=== PATIENT | female | born 1950 | race Caucasian/White ===

== ENCOUNTER 2016-05-20 12:44 | Emergency (ER) | payer MEDICARE ==
[2016-05-20 13:20] LABS: APPEARANCE CLEAR (CLEAR); BILIRUBIN NEGATIVE (NEGATIVE); COLOR YELLOW (YELLOW); GLUCOSE 50 mg/dL (NEGATIVE); KETONE NEGATIVE (NEGATIVE); LEUKOCYTE ESTERASE NEGATIVE (NEGATIVE); NITRITE NEGATIVE (NEGATIVE); PROTEIN NEGATIVE (NEGATIVE); UROBILINOGEN NORMAL (NORMAL)
[2016-05-20 13:23] LABS: BASOPHILS 0.4 % (0.0-2.0); EOSINOPHILS 1.9 % (0-7); HEMOGLOBIN 15.5 g/dL (12-16); IMMATURE GRANULOCYTES 0.3 % (0-5); LYMPHOCYTES 27.7 % (15-50); MCH 30.3 pg (26.0-34.0); MCHC 33.7 g/dL (31.0-37.0); MEAN PLATELET VOLUME 11.7 fL (7.4-10.4); MONOCYTES 9.7 % (2-11); PLATELET COUNT 253 10x3/uL (130-400); RBC 5.11 10x6/uL (4.00-5.40); RDW 12.4 % (11.5-14.5); WBC 7.8 10x3/uL (4.8-10.8)
[2016-05-20 13:40] LABS: ALBUMIN 3.5 g/dL (3.4-5.0); ALKALINE PHOSPHATASE 109 U/L (46-116); ALT (SGPT) 44 U/L (10-68); BILIRUBIN - TOTAL 0.53 mg/dL (0.2-1.3); CALC OSMOLALITY 279 mosm/kg (275-300); CALCIUM 8.7 mg/dL (8.5-10.1); CARBON DIOXIDE 24.8 mmol/L (21.0-32.0); CHLORIDE - SERUM 102 mmol/L (98-107); CREATININE - SERUM 0.8 mg/dL (0.6-1.3); GLUCOSE 181 mg/dL (74-106); POTASSIUM - SERUM 4.2 mmol/L (3.5-5.1); PROTEIN - SERUM 7.7 g/dL (6.4-8.2); SODIUM 138 mmol/L (136-145); UREA NITROGEN 11 mg/dL (7-18); eGFR NON AFRICAN AMERICAN 76 mL/min (90-120)
[2016-05-20 13:59] LABS: HCG SERUM NEGATIVE (NEGATIVE)
== END 2016-05-20 14:25 | disposition home or self-care (01) ==
LOC: D.ER 12:44
PROVIDERS: Emergency Medicine
DX: M54.9 Dorsalgia, unspecified (principal); R10.31 Right lower quadrant pain; M79.7 Fibromyalgia; I10 Essential (primary) hypertension; K21.9 Gastro-esophageal reflux disease without esophagitis; F32.9 Major depressive disorder, single episode, unspecified; F17.200 Nicotine dependence, unspecified, uncomplicated

== ENCOUNTER 2017-12-08 19:00 | Outpatient (CLI) | payer MEDICARE | END 2017-12-08 23:59 | disposition home or self-care (01) | LOC: D.MAMMO 19:00 | DX: Z12.31 Encounter for screening mammogram for malignant neoplasm of breast (principal) ==

== ENCOUNTER → 2018-01-16 16:48 | Outpatient (CLI) | payer MEDICARE, OTHER | END | disposition home or self-care (01) | LOC: D.MAMMO 09:00 | DX: R92.8 Other abnormal and inconclusive findings on diagnostic imaging of breast (principal) ==

== ENCOUNTER → 2018-02-07 12:04 | Outpatient (CLI) | payer MEDICARE, OTHER | END | disposition home or self-care (01) | LOC: D.US 12:04 | DX: R92.8 Other abnormal and inconclusive findings on diagnostic imaging of breast (principal) ==

== ENCOUNTER → 2018-02-28 17:23 | Outpatient (CLI) | payer MEDICARE, OTHER ==
[~2018-02-28 17:23] MED LIST: CITRACAL + D E1 EACH PO; CYMBALTA20 MG PO; GLUCOPHAGE1000 MG PO; KLONOPIN1 MG PO; MAXZIDE 75/501 TAB PO; MERIBIN5 MG PO; PROTONIX40 MG PO; ZANAFLEX4 MG PO
[2018-03-06 06:34] VITALS: BMI 26.8
== END | disposition home or self-care (01) ==
LOC: D.LABREF 17:23
DX: D72.829 Elevated white blood cell count, unspecified (principal)

== ENCOUNTER 2018-03-06 05:50 | Day surgery (SDC) | payer MEDICARE, OTHER ==
[2018-03-05 12:06] LABS: BASOPHILS 0.3 % (0-2); EOSINOPHILS 0.7 % (0-7); HEMATOCRIT 45.5 % (36.0-48.0); HEMOGLOBIN 15.7 g/dL (12-16); IMMATURE GRANULOCYTES 0.3 % (0-5); LYMPHOCYTES 26.4 % (15-50); MCHC 34.5 g/dL (31.0-37.0); MCV 86.8 fL (80.0-100.0); MEAN PLATELET VOLUME 11.2 fL (7.4-10.4); MONOCYTES 7.9 % (2-11); NEUTROPHILS 64.4 % (40-80); PLATELET COUNT 297 10x3/uL (130-400); RBC 5.24 10x6/uL (4.00-5.40); WBC 9.9 10x3/uL (4.8-10.8)
[2018-03-05 12:14] LABS: CALCIUM 8.9 mg/dL (8.5-10.1); CARBON DIOXIDE 29.4 mmol/L (21.0-32.0); CREATININE - SERUM 0.9 mg/dL (0.6-1.3); POTASSIUM - SERUM 3.4 mmol/L (3.5-5.1)
[2018-03-05 12:20] LABS: APTT 26.8 SECONDS (22.8-39.4); INR 0.95 (0.85-1.17); PROTIME 12.2 SECONDS (11.6-15.0)
[~2018-03-06] VITALS: Ht 162.6 cm; Wt 70.8 kg
--- NOTE | ~2018-03-06 | OP ---
PATIENT NAME: IAN ALONZO MEDICAL RECORD: [id number] :49 LOCATION:D.[facility] ADMISSION DATE: SURGEON: KEVIN PARKS MD DATE OF OPERATION: 03/06/2018 PREOPERATIVE DIAGNOSES: 1. Left breast cancer. 2. Hypertension. 3. Diabetes mellitus. 4. Fibromyalgia. POSTOPERATIVE DIAGNOSES: 1. Left breast cancer. 2. Hypertension. 3. Diabetes mellitus. 4. Fibromyalgia. PROCEDURES: 1. Needle localization, left lumpectomy. 2. [place] lymph node biopsy of the left axilla. SURGEON: Kevin Parks MD ANIMATION ARTIST: Ruth Farnsworth APRN REPORT OF OPERATION: The patient's left breast and axilla were prepped and draped in sterile fashion. A skin incision was made on the left lateral breast overlying a palpable mass. A localization wire had been placed preoperatively. Under ultrasound guidance, we were able to eviscerate this wire through our wound as it progressed through the specimen. We excised core of tissue around the breast overlying this wire and the palpable mass. Once this was completely excised, then it was marked appropriately and sent off to mammography, where the clip and the wire were noted to be in good position with the mass present in the middle of specimen. We inspected the wound bed and any bleeding that was found was treated with electrocautery. We irrigated out the wound with sterile water. The patient had a breast implant present. We never penetrated through the capsule. The subcutaneous tissues were then reapproximated with interrupted 3-0 Vicryl and the skin was closed with running subcutaneous 5-0 Monocryl. We then approached the left axilla. The patient had undergone lymphoscintigraphy preoperatively and it showed uptake in the left axilla. A transverse incision was made over an area of increased radiotracer uptake. Electrocautery was used to dissect through the subcutaneous tissues and fascia until we entered the axillary space. As we inspected the area, the patient had multiple lymph nodes with elevated readings. A total of 4 separate lymph nodes were removed with the highest reading being approximately 1100. At the conclusion of this, there was a final lymph node that had elevated reading of approximately 200, but it was at least a level 2 lymph node. As my finger was passed, it was under the pectoral muscle and may actually have been a level 3 lymph node. I elected to just leave this alone as the other lymph nodes all had much higher readings than this one. At this point, the wound bed was irrigated out with sterile water. The subcutaneous tissues were reapproximated with multiple interrupted 3-0 Vicryls and the skin was closed with running subcutaneous 5-0 Monocryl. A 10 mL of 0.25% Marcaine with epinephrine was infused into the surrounding tissues and the wounds were dressed appropriately. OPERATIVE REPORT [id number] IAN ALONZO COMPLICATIONS: None. CONDITION: Stable. ANESTHESIA: General endotracheal and local. BLOOD LOSS: 30 mL. TRANSINT:[id number] Voice Confirmation ID: [id number] DOCUMENT ID: [id number] KEVIN PARKS MD CC: RON MONSIVAIS [id number] DICTATION DATE: 03/06/18 1329 WELDER FABRICATOR: 03/06/18 1357 [facility] 03/06/18 [address] [place] [address]
[~2018-03-06 05:50] MED LIST changes: -CITRACAL + D E1 EACH PO; -MERIBIN5 MG PO
[2018-03-06] MEDS ORDERED: MERIBIN5 MG PO (06:21)
[2018-03-06] MEDS ORDERED: CITRACAL + D E1 EACH PO (06:21)
[2018-03-06 06:34] VITALS: BP 153/62; Ht 162.6 cm; Wt 70.8 kg
--- NOTE | 2018-03-06 15:11 | NUR ---
DC INSTRUCTIONS GIVEN TO PT/FAMILY. STATE UNDERSTANDING. DC'D IV CATH FULLY INTACT.
--- NOTE | 2018-03-06 15:44 | NUR ---
PT LEFT UNIT VIA WC AT 1543
== END 2018-03-06 15:43 | disposition home or self-care (01) ==
LOC: D.OPS 05:50 → D.PAN 08:00 → D.OPS 15:43
PROVIDERS: Anesthesiology; Surgery
DX: C50.912 Malignant neoplasm of unspecified site of left female breast (principal); I10 Essential (primary) hypertension; E11.9 Type 2 diabetes mellitus without complications; M79.7 Fibromyalgia; Z01.812 Encounter for preprocedural laboratory examination

== ENCOUNTER 2018-03-15 06:25 | Day surgery (SDC) | payer MEDICARE, OTHER ==
[~2018-03-15] VITALS: Ht 162.6 cm; Wt 70.3 kg
[~2018-03-15 06:25] MED LIST changes: +CITRACAL + D E1 EACH PO; +MERIBIN5 MG PO
[2018-03-15 06:46] LABS: BASOPHILS 0.3 % (0-2); EOSINOPHILS 1.9 % (0-7); HEMATOCRIT 42.7 % (36.0-48.0); HEMOGLOBIN 14.6 g/dL (12-16); IMMATURE GRANULOCYTES 0.8 % (0-5); LYMPHOCYTES 25.9 % (15-50); MCH 29.7 pg (26.0-34.0); MCHC 34.2 g/dL (31.0-37.0); MCV 86.8 fL (80.0-100.0); MEAN PLATELET VOLUME 10.7 fL (7.4-10.4); MONOCYTES 9.3 % (2-11); NEUTROPHILS 61.8 % (40-80); PLATELET COUNT 284 10x3/uL (130-400); RBC 4.92 10x6/uL (4.00-5.40); WBC 8.9 10x3/uL (4.8-10.8)
[2018-03-15 06:54] LABS: APPEARANCE HAZY (CLEAR); BILIRUBIN NEGATIVE (NEGATIVE); COLOR YELLOW (YELLOW); GLUCOSE NEGATIVE (NEGATIVE); KETONE NEGATIVE (NEGATIVE); NITRITE NEGATIVE (NEGATIVE); PROTEIN NEGATIVE (NEGATIVE); UROBILINOGEN NORMAL (NORMAL)
[2018-03-15 07:00] LABS: BACTERIA FEW /hpf (NONE SEEN); EPITHELIAL CELLS OCC /hpf (0-5); RED CELLS - URINE RARE /hpf (0-5); WHITE CELLS - URINE 0-5 /hpf (0-5)
[2018-03-15 07:13] LABS: CALC OSMOLALITY 284 mosm/kg (275-300); CALCIUM 9.1 mg/dL (8.5-10.1); CARBON DIOXIDE 30.9 mmol/L (21.0-32.0); CHLORIDE - SERUM 102 mmol/L (98-107); CREATININE - SERUM 0.8 mg/dL (0.6-1.3); GLUCOSE 153 mg/dL (74-106); POTASSIUM - SERUM 3.6 mmol/L (3.5-5.1); SODIUM 141 mmol/L (136-145); UREA NITROGEN 16 mg/dL (7-18); eGFR NON AFRICAN AMERICAN 75 mL/min (90-120)
[2018-03-15 09:51] VITALS: BP 116/74; Ht 162.6 cm; Wt 70.3 kg
--- NOTE | 2018-03-15 10:55 | NUR ---
REC'D FROM SURGERY. NO FAMILY AT BEDSIDE. RELATES NEEDS TO "PEE." EXPLAINED TO PT SHE HAS TO WAIT A MINIMUM OF 15 MINUTES AND TO TURN FROM SIDE TO SIDE TO MOVE MEDICATION AROUND. COFFEE AND ICE WATER BROUGHT TO PT.
--- NOTE | 2018-03-15 11:05 | NUR ---
AMBULATED TO BATHROOM AND VOIDED WITHOUT DIFFICULTY. FL TRAY SERVED TO PT. FAMILY HAVE NOT RETURNED.
--- NOTE | 2018-03-15 11:35 | NUR ---
TOLERATED FL TRAY. IV DC'D WITH CATHETER INTACT. FAMILY HERE. WRITTEN AND VERBAL DC INST. GIVEN TO PT. VERBALIZED UNDERSTANDING.
--- NOTE | 2018-03-15 11:50 | NUR ---
DC'D HOME WITH FAMILY VIA PRIVATE VEHICLE. TAKEN TO VEHICLE VIA WC. STABLE AT TIME OF DC.
--- NOTE | 2018-03-15 12:09 | OP ---
PATIENT NAME: IAN ALONZO MEDICAL RECORD: [id number] :49 LOCATION:[facility] ADMISSION DATE: SURGEON: JESSICA CRAMER MD DATE OF OPERATION: 03/15/2018 SURGEON: Jessica Cramer MD ANESTHESIA: TIVA by Tab Lynn CRNA DIAGNOSIS: Interstitial cystitis. PROCEDURES: Cystoscopy, examination under anesthesia, hydrodistention to 500 mL, and intravesical Rimso instillation. FINDINGS: Very inflamed bladder with single ureteral orifices bilaterally. No bladder tumors. No mesh graft erosion into the bladder or urethra. On examination under anesthesia, intact vaginal mucosa with no mesh graft extrusion. BLOOD LOSS: None. CLINICAL HISTORY: This is a 67-year-old female, A2, who was referred with symptoms of recurrent urinary tract infections. She has previously had pubovaginal sling and cystocele repair with mesh in 2006. She has ongoing issues with stress and urge urinary incontinence. She has daytime urinary frequency every one hour with urge incontinence. She also leaks with any kind of coughing, sneezing, lifting, and arising from bed or chair. She has symptoms of dyspareunia also. When I examined her in the office, she had urethral hypermobility. I did not see any leakage with coughing and straining. She had vaginal candidiasis, so the pelvic examination was rather difficult, but she did have a cystocele, [place]-Walker grade II, with mesh palpable in the cystocele. She comes today to have cystoscopy and examination under anesthesia to see if erosion of mesh is causing her symptoms. Her symptoms do sound very similar to interstitial cystitis. If I do not see any eroded mesh and there is bladder inflammation, we will proceed to treatment with intravesical Rimso. She did have a urine culture done in the office and that showed mixed contamination. SHE IS ALLERGIC TO CODEINE, MORPHINE, AND ASPIRIN. She was given Ancef on-call to the OR today. DESCRIPTION OF PROCEDURE: The patient was given IV sedation. She was then placed in the dorsal lithotomy position and prepped and draped. A 17-Vincentian cystoscope was used for visualization with a 30-degree lens. Going into the bladder, we did not find any signs of mesh erosion. The bladder was extremely inflamed. We then distended the bladder to 500 mL and held it for about one minute. Finally, the bladder was drained through the cystoscope sheath and the scope was removed. A 14-Vincentian red rubber catheter was then introduced into the bladder and 50 mL of Rimso solution was instilled into the bladder. The catheter was then removed, leaving the solution in the bladder. The scope was then turned into the vagina for vaginoscopy. The vaginal candidiasis had cleared up with treatment by Diflucan. There was absolutely no sign of any graft erosion or extrusion to disrupt the anterior vaginal wall. There were also no palpable abnormalities on the anterior vaginal wall besides the presence of the cystocele. At this point, the procedure was terminated. The patient was awakened and brought back to her preoperative holding area. She will void the Rimso solution out in 15 minutes. She will be seen in follow up in 2 weeks' OPERATIVE REPORT [id number] IAN ALONZO for a possible second treatment of Rimso. TRANSINT:[id number] Voice Confirmation ID: [id number] DOCUMENT ID: [id number] JESSICA CRAMER MD at 1209 CC: [id number] DICTATION DATE: 03/15/18 1053 CAREER RESOURCE TECHNICIAN: 03/15/18 1147 [facility] [address] [id number]
== END 2018-03-15 11:50 | disposition home or self-care (01) ==
LOC: D.OPS 06:25 → D.PAN 08:30 → D.OPS 08:30
PROVIDERS: Anesthesiology
DX: N30.10 Interstitial cystitis (chronic) without hematuria (principal); Z88.6 Allergy status to analgesic agent; Z88.5 Allergy status to narcotic agent; Z01.812 Encounter for preprocedural laboratory examination

== ENCOUNTER → 2018-03-27 17:45 | Outpatient (CLI) | payer MEDICARE, OTHER ==
[2018-03-15 09:51] VITALS: BMI 26.6
== END | disposition home or self-care (01) ==
LOC: D.LABREF 17:45
DX: D72.829 Elevated white blood cell count, unspecified (principal)

== ENCOUNTER → 2018-04-16 18:33 | Outpatient (CLI) | payer MEDICARE, OTHER ==
[2018-03-15 09:51] VITALS: BMI 26.6
[2018-04-23 17:11] LABS: AEROBE ID Final report (())
== END | disposition home or self-care (01) ==
LOC: D.LABREF 18:33
PROVIDERS: ATTEND Urology
DX: D72.829 Elevated white blood cell count, unspecified (principal)

== ENCOUNTER → 2018-05-09 18:49 | Outpatient (CLI) | payer MEDICARE, OTHER ==
[2018-03-15 09:51] VITALS: BMI 26.6
== END | disposition home or self-care (01) ==
LOC: D.LABREF 18:49
PROVIDERS: ATTEND Urology
DX: D72.829 Elevated white blood cell count, unspecified (principal); R31.9 Hematuria, unspecified

== ENCOUNTER 2018-05-22 09:00 | Day surgery (SDC) | payer MEDICARE, OTHER ==
[2018-05-21 12:19] LABS: HEMATOCRIT 43.1 % (36.0-48.0); HEMOGLOBIN 14.8 g/dL (12-16); MCH 29.7 pg (26.0-34.0); MCHC 34.3 g/dL (31.0-37.0); MCV 86.4 fL (80.0-100.0); MEAN PLATELET VOLUME 10.9 fL (7.4-10.4); RBC 4.99 10x6/uL (4.00-5.40); RDW 12.7 % (11.5-14.5); WBC 6.9 10x3/uL (4.8-10.8)
[2018-05-21 12:25] LABS: APPEARANCE CLEAR (CLEAR); COLOR STRAW (YELLOW); GLUCOSE 100 mg/dL (NEGATIVE); KETONE NEGATIVE (NEGATIVE); NITRITE NEGATIVE (NEGATIVE); PROTEIN NEGATIVE (NEGATIVE); SPECIFIC GRAVITY 1.015 (1.005-1.020); UROBILINOGEN NORMAL (NORMAL)
[2018-05-21 12:26] LABS: BILIRUBIN NEGATIVE (NEGATIVE)
[2018-05-21 12:29] LABS: CALC OSMOLALITY 283 mosm/kg (275-300); CALCIUM 8.7 mg/dL (8.5-10.1); CARBON DIOXIDE 31.4 mmol/L (21.0-32.0); CHLORIDE - SERUM 102 mmol/L (98-107); CREATININE - SERUM 0.8 mg/dL (0.6-1.3); GLUCOSE 162 mg/dL (74-106); POTASSIUM - SERUM 3.8 mmol/L (3.5-5.1); SODIUM 141 mmol/L (136-145); UREA NITROGEN 11 mg/dL (7-18); eGFR NON AFRICAN AMERICAN 75 mL/min (90-120)
[~2018-05-22] VITALS: Ht 162.6 cm; Wt 71.7 kg
[2018-05-22 09:09] VITALS: BP 113/63; Ht 162.6 cm; Wt 71.7 kg
--- NOTE | 2018-05-23 08:56 | OP ---
PATIENT NAME: IAN ALONZO MEDICAL RECORD: [id number] :49 LOCATION:D.OPS ADMISSION DATE: SURGEON: JESSICA CRAMER MD DATE OF OPERATION: 05/22/2018 SURGEON: Jessica Cramer MD ANESTHESIA: General anesthesia by Autumn Rios CRNA. DIAGNOSES: 1. Female stress urinary incontinence. 2. Recurrent urinary tract infections. 3. 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 PROCEDURES: Cystoscopy; pubovaginal sling with bovine fascia, 2 x 7 cm with retropubic suspension; cystocele repair using bovine fascia 8 x 12 cm. FINDINGS: On cystoscopy, no bladder injury. There are single ureteral orifices bilaterally and no bladder tumors were seen. Old mesh was well incorporated into the tissues and it cannot be removed. ESTIMATED BLOOD LOSS: 100 mL. SPECIMENS: None. CLINICAL HISTORY: This is a 67-year-old female, who has recurrent urinary tract infections. She had a previous pubovaginal sling and cystocele repair using mesh. These have failed and she now has ongoing stress urinary incontinence. When I examined her with cystoscopy and a pelvic examination, I did not see any vaginal mesh erosion. She wants to have the old mesh removed if possible as she is convinced that the old mesh is causing her to have these recurrent infections. I tried to explain her; however, that her urinary incontinence itself will predispose her to urinary tract infections and incomplete bladder emptying from the cystocele will also predispose to urinary tract infections. Also, if the old mesh is very well incorporated into the tissue that may be virtually impossible to remove the old mesh without causing a great deal of damage to the bladder or urethra. She would like to have a repair done with bovine fascia instead of another piece of mesh. SHE IS ALLERGIC TO ASPIRIN, CODEINE AND MORPHINE. She was given Ancef environmental sampler to the OR. DESCRIPTION OF PROCEDURE: The patient was given induction of general anesthesia. She was placed in dorsal lithotomy position in Trendelenburg position. A weighted speculum was used to hold the posterior vaginal wall down. A Mueller catheter was placed into the bladder and put to bag drainage. A #2 nylon suture was used to retract the labia majora laterally on both sides. These stay sutures were anchored to the medial thighs. The anterior vaginal wall was then visible. The entire anterior vaginal wall was infiltrated with Pitressin solution. Twenty units of Pitressin was dissolved in 100 mL of injectable normal saline. This fluid was used to perform hydrodissection of the plane between the anterior vaginal wall and the bladder. I made a transverse incision at the level of the bladder neck. Dissection was then done to free the anterior vaginal wall from the underlying urethra and bladder. Laterally, I broke through the pubocervical ligaments and in fact most of these had already been broken through. I broke through in fact old graft material. Finally, we had a clear space from the retropubic area to the obturator membranes OPERATIVE REPORT [id number] IAN ALONZO bilaterally and to the presacral space with the ischial spines and the attached sacrospinous ligaments bilaterally. We then proceeded with the retropubic pubovaginal sling. A 2 cm incision was made just above the symphysis pubis in transverse fashion in the midline. This was bluntly dissected down to the rectus fascia. Stamey needles were then passed through the lateral extent of the incision on each side. The tips of the needles were intersected by a finger in the retropubic space. The finger then guided the Stamey needle down to the vaginal dissection space. The Mueller catheter was then removed. Cystoscopy was performed and no bladder injury was noted. The bladder was filled through the cystoscope with normal saline. A 2 x 7 cm graft was hydrated and then a 2-0 Prolene suture was placed in helical fashion around each end of it. The suture ends of the suspensory sutures were placed through the eyelet holes all the Stamey needles. The Stamey needles were then withdrawn through the suprapubic incision to draw the suspensory sutures in the retropubic fashion up through the rectus fascia. I gently increased tension on the suspensory sutures until suprapubic pressure no longer elicited leakage per the urethra. At this point, the two suspensory sutures from each side were tied to each other. The suprapubic incision was irrigated out with normal saline. The incision was closed using joy. This completed the pubovaginal sling. I then worked on the cystocele repair. The distance from ischial spine to ischial spine was measured and it came out to 12 cm. The extent from the bladder neck to the most proximal portion of our dissection of the vaginal cuff level was 6 cm. Using the 8 x 12 rectangular sheet, an arch was cut out of the posterior edge to make the mid portion 6 cm in width. This arch also serves to prevent occlusion of the rectum, which would create difficulty with defecation in the future. Four suspensory sutures were placed. These are 2-0 Prolene and these were placed using a Capio suture owner operator tanker truck driver. A 1 cm medial to the ischial spine, the Capio suture was placed through each sacrospinous ligament. Moving 1 cm medially avoids injuring the internal pudendal artery and nerves. Once the suture had been passed through, the suture ends were placed in a hemostat and set aside. The anterior suspensory sutures were placed through the level of the arcus tendineus fascia or the Ian's ligament in that region. All sutures were pulled upon strongly to check for a strong anchorage and they all had strong anchorage. The 4 suspensory sutures, the 2 posterior and 2 anterior were placed in the respective corners of the 8 x 12 graft with the arch cut out posteriorly. The anterior suspensory sutures were tied down first. Then, a Palauan forceps was used to make sure that each leg of the posterior portion of the graft went down as close as possible to the sacrospinous ligament and then that posterior suspensory suture was tied down. She had an excellent reduction of her cystocele. The wound was irrigated out using normal saline. The anterior vaginal wall was reapproximated using running 4-0 Monocryl. A Mueller catheter was put back in to drain the bladder. This was removed at the end of the procedure. She had vaginal packing placed in the vagina. This will be removed before she goes home. Also, the Mueller catheter was removed and we will see if she can void before she goes home. I will see her in followup next week. TRANSINT:[id number] Voice Confirmation ID: [id number] DOCUMENT ID: [id number] OPERATIVE REPORT [id number] IAN ALONZO ROBERT S MD at 0856 CC: [id number] DICTATION DATE: 05/22/18 1543 SOFTWARE QA SYSTEM SPECIALIST: 05/22/18 1729 [facility] 05/22/18 [id number] [place] [address]
== END 2018-05-22 20:05 | disposition home or self-care (01) ==
LOC: D.OPS 09:00 → D.PAN 10:05 → D.OPS 10:10 → D.PAN 10:15 → D.OPS 11:00 → D.PAN 11:10 → D.OPS 12:00 → D.PAN 05-24 08:15
PROVIDERS: Anesthesiology; ATTEND Urology
DX: N39.3 Stress incontinence (female) (male) (principal); N81.2 Incomplete uterovaginal prolapse; Z87.440 Personal history of urinary (tract) infections; Z01.812 Encounter for preprocedural laboratory examination

== ENCOUNTER → 2018-06-29 15:46 | Outpatient (CLI) | payer MEDICARE, OTHER ==
[2018-05-22 09:09] VITALS: BMI 27.1
== END | disposition home or self-care (01) ==
LOC: D.LABREF 15:46
PROVIDERS: ATTEND Urology
DX: D72.829 Elevated white blood cell count, unspecified (principal); R31.9 Hematuria, unspecified

== ENCOUNTER → 2018-09-17 18:15 | Outpatient (CLI) | payer MEDICARE, OTHER ==
[2018-05-22 09:09] VITALS: BMI 27.1
== END | disposition home or self-care (01) ==
LOC: D.LABREF 18:15
PROVIDERS: ATTEND Urology
DX: D72.819 Decreased white blood cell count, unspecified (principal); R31.9 Hematuria, unspecified

== ENCOUNTER → 2018-10-15 19:06 | Outpatient (CLI) | payer MEDICARE, OTHER ==
[2018-05-22 09:09] VITALS: BMI 27.1
== END | disposition home or self-care (01) ==
LOC: D.LABREF 19:06
PROVIDERS: ATTEND Urology
DX: Z00.01 Encounter for general adult medical examination with abnormal findings (principal)

== ENCOUNTER → 2018-11-06 17:14 | Outpatient (CLI) | payer MEDICARE, OTHER ==
[2018-05-22 09:09] VITALS: BMI 27.1
== END | disposition home or self-care (01) ==
LOC: D.LABREF 17:14
PROVIDERS: ATTEND Urology
DX: R31.9 Hematuria, unspecified (principal)

== ENCOUNTER → 2020-07-20 12:47 | Outpatient (CLI) | payer MEDICARE, OTHER ==
[2018-05-22 09:09] VITALS: BMI 27.1
== END | disposition home or self-care (01) ==
LOC: D.CT 12:47
PROVIDERS: ATTEND Family Medicine
DX: R91.8 Other nonspecific abnormal finding of lung field (principal)